=== PATIENT | female | born 1950 | race Caucasian/White ===

== ENCOUNTER → 2019-04-22 | Outpatient (CLI) | payer MEDICARE ==
[2019-04-22 10:11] LABS: Appearance,Urine Clear (Clear); Bilirubin,Urine Negative (Negative); Blood,Urine Negative (Negative); Color,Urine Yellow; Glucose,Urine (UA) Negative (Negative); Ketones,Urine Negative (Negative); Leukocyte Esterase,Urine Negative (Negative); Nitrite,Urine Negative (Negative); Protein,Urine Negative (Negative); Specific Gravity,Urine 1.016 (1.001-1.035); Urobilinogen,Urine <2.0 mg/dL (<2.0)
[2019-04-22 10:16] LABS: Basophils % (A) 1 %; Eosinophils # (A) 0.1 k/uL (0-0.7); Eosinophils % (A) 2 %; HCT 41.7 % (34.0-46.0); HGB 13.9 gm/dL (11.4-16.0); Lymphocytes % (A) 20 %; MCH 29.7 pg (25.0-35.0); MCHC 33.3 g/dL (31.0-37.0); MCV 89.4 fL (80.0-100.0); Mean Platelet Volume 7.3; Monocytes # (A) 0.5 k/uL (0-1.0); Monocytes % (A) 10 %; Neutrophils # (A) 3.2 k/uL (1.3-7.7); Neutrophils % (A) 66 %; Platelet Count 183 k/uL (150-450); RBC 4.67 m/uL (3.80-5.40); RDW 13.3 % (11.5-15.5); WBC 4.8 k/uL (3.8-10.6)
[2019-04-22 16:04] LABS: Albumin 4.1 g/dL (3.80-4.90); Albumin/Globulin Ratio 2.73 (1.60-3.17); Anion Gap 11.1 mmol/L (4.00-12.00); Calcium 8.9 mg/dL (8.7-10.3); Carbon Dioxide 21.9 mmol/L (21.6-31.8); Globulin 1.5 g/dL (1.6-3.3); LDL Cholesterol,Calculated 96.8 mg/dL (0.0-131.0); Magnesium 1.7 mg/dL (1.5-2.4); Total Bilirubin 1.4 mg/dL (0.3-1.2); Total Protein 5.6 g/dL (6.2-8.2); VLDL Calculation 18.2 mg/dL (5.00-40.00)
[2019-04-22 17:49] LABS: Creatinine,Urine Random 96.5 mg/dL
== END | disposition home or self-care (01) ==
LOC: LABWHC1 09:11
PROVIDERS: ATTEND Internal Medicine
DX: Z94.0 Kidney transplant status (principal); Z79.899 Other long term (current) drug therapy
CPT/HCPCS: 36415; 80053; 80061; 80197; 81003; 82570; 83735; 83970; 84100; 84156; 85025

== ENCOUNTER → 2023-03-15 | Outpatient (CLI) | payer MEDICARE ==
--- NOTE | 2023-03-15 18:48 | MR ---
EXAMINATION TYPE: MR shoulder RT wo con DATE OF EXAM: 03/15/2023 5:29 PM COMPARISON: NONE HISTORY: Rt shoulder pain TECHNIQUE: Multiplanar multispin echo imaging of the right shoulder was performed. FINDINGS: Rotator cuff : There is thickening and heterogeneity of the supraspinatus tendon compatible chronic t endinopathy. No evidence of partial tear or full-thickness tear. Remaining constituents of the rotato r cuff are intact. Bursa: No bursal effusion or thickening is seen. Musculature: There is no muscular tear, contusion, or atrophy. Acromioclavicular joint : Lateral downsloping of the acromion with subacromial spurring resulting in moderate subacromial impingement. Moderate AC joint arthropathy. Osseous structures : There are no fractures or regions of abnormal bone marrow signal intensity. Long biceps tendon : The biceps tendon is normally situated within the bicipital groove. There is int ra-articular tendinosis seen as well as partial tear suggested. Glenohumeral Joint fluid : There is no glenohumeral joint effusion. Cartilage and Bone : No focal hyaline cartilage defects are noted. No Hill-Sachs, reverse Hill-Sachs, or bony Bankart lesions are seen. Labrum : There are no SLAP or soft tissue Bankart lesions. No paralabral cysts are seen. OTHER FINDINGS : none IMPRESSION: 1. There is thickening and heterogeneity of the supraspinatus tendon compatible chronic tendinopathy. No evidence of partial tear or full-thickness tear. 2. Biceps tendon intra-articular tendinosis seen as well as partial tear suggested. 3.Lateral downsloping of the acromion with subacromial spurring resulting in moderate subacromial imp ingement.
== END | disposition home or self-care (01) ==
LOC: RADMRIMAIN 16:26
PROVIDERS: ATTEND Family Medicine
DX: M25.811 Other specified joint disorders, right shoulder (principal)